=== PATIENT | female | born 1965 | race Caucasian/White ===

== ENCOUNTER 2016-08-27 15:15 | Emergency (ER) | payer MEDICARE ==
[2016-08-27 18:06] LABS: Hematocrit 43 % (35-47); Mean Corpuscular HGB Conc 32 g/dl (31-36); Mean Corpuscular Hemoglobin 29 pg (27-31); Mean Corpuscular Volume 91 fL (80-97); Mean Platelet Volume 8 um3 (7.4-10.4); Red Blood Count 4.77 10^6/ul (4.0-5.4); Red Cell Distribution Width 13 % (10.5-15); White Blood Count 11.9 10^3/ul (3.5-10.8)
[2016-08-27 18:21] LABS: Albumin 4.3 g/dL (3.2-5.2); BUN/Creatinine Ratio 17.5 (8-20); Calcium 9.3 mg/dL (8.6-10.3); EGFR African American 127.6 (>60); EGFR Non-African American 99.2 (>60); Globulin 3.1 g/dL (2-4); Total Bilirubin 0.4 mg/dL (0.2-1.0); Total Protein 7.4 g/dL (6.4-8.9)
[2016-08-27 18:24] LABS: Potassium 4.2 mmol/L (3.5-5.0)
[2016-08-27] MEDS ORDERED: Iohexol 350* (CONTRAST) 500 ML MDV IV ONE (18:45)
--- NOTE | 2016-08-27 20:13 | RAD ---
Indication: Shortness of breath, positive d-dimer. Contrast: Administered 100.0 ml of OMNIPAQUE 350 mgi/ml CTA of the chest was performed after IV contrast administration. Coronal and sagittal reconstructed images were obtained. The pulmonary arterial tree is well opacified. There are no evidence of filling defects present to suggest pulmonary embolus. The thoracic aorta demonstrates no evidence of aortic dissection. The trachea and major bronchi appear patent. The lung palafox demonstrate no pleural fluid, pneumonia or pneumothorax. The visualized abdominal organs are otherwise unremarkable. IMPRESSION: No evidence of pulmonary embolus is noted. No evidence of aortic dissection is noted.
[2016-08-27] MEDS ORDERED: Albuterol/Ipratropium NEB.SOL* Albuterol 2.5 MG/Ipratropium 0.5 MG 3 ML INH ONE (20:25)
[2016-08-27] MEDS ORDERED: methylPREDNISolone 125 MG* 2 ML VIAL IV ONE (20:25)
--- NOTE | 2016-08-27 20:37 | ED ---
Deng Rahman Billy, scribed for Mac Craft MD on 08/27/16 at 1709 . Shortness of Breath - HPI Summary HPI Summary: Patient is a 50 year-old female sent to [facility] by her PCP for evaluation of an elevated D-Dimer value of 236 today. She states that she was diagnosed with asthma today as well by her clinique counter manager, Dr. Ashley. For the last 2 months, she has had progressing chest pain, shortness of breath, cough, and wheezing. She describes her chest pain as "lung pain." She is also being treated by Dr. Tinajero for chronic back pain and osteoarthritis. Denies any recent travel. - History of Current Complaint Chief Complaint: EDAsthma Time Seen by Provider: 08/27/16 16:49 Hx Obtained From: Patient Onset/Duration: Gradual Onset, Lasting Weeks Current Severity: Moderate Aggrevating Factors: Nothing Alleviating Factors: Nothing Associated Signs & Symptoms: Wheezing - Allergy/Home Medications Allergies/Adverse Reactions: Allergies Allergy/AdvReac Type Severity Reaction Status Date / Time Cephalosporins Allergy Severe sob,rash Verified 08/23/12 13:03 Penicillins Allergy Severe sob ,hives Verified 08/23/12 13:00 Aminothiols Allergy Unknown Unknown Verified 08/23/12 13:03 Reaction Details Carbapenems Allergy Unknown Unknown Verified 08/23/12 13:03 Reaction Details monobactam Allergy Severe Shortness Uncoded 08/23/12 13:03 of Breath PMH/Surg Hx/FS Hx/Imm Hx Endocrine/Hematology History: Reports: Hx Thyroid Disease, Hx Anemia - With Interferon Denies: Hx Anticoagulant Therapy, Hx Diabetes Cardiovascular History: Denies: Hx Hypertension, Hx Pacemaker/ICD Respiratory History: Denies: Hx Asthma, Hx Chronic Obstructive Pulmonary Disease (COPD) GI History: Reports: Hx Gall Bladder Disease, Hx Irritable Bowel, Hx Jaundice, Other GI Disorders - right side pain, hep c History: Denies: Hx Renal Disease Musculoskeletal History: Reports: Hx Arthritis, Hx Back Problems, Hx Osteoporosis, Other Musculoskeletal History - chronic back pain,osteo arthritis Denies: Hx Rheumatoid Arthritis Sensory History: Reports: Hx Contacts or Glasses Denies: Hx Hearing Aid Opthamlomology History: Reports: Hx Contacts or Glasses Neurological History: Denies: Hx Dementia, Hx Seizures Psychiatric History: Reports: Hx Anxiety Denies: Hx Panic Disorder, Hx Substance Abuse - Cancer History Hx Chemotherapy: No Hx Radiation Therapy: No - Surgical History Surgery Procedure, Year, and Place: WILDER 2004, [facility] [place] CYST REMOVED FROM EYE done in office 2009 Hx Anesthesia Reactions: No Infectious Disease History: No Infectious Disease History: Reports: Hx Hepatitis - Hep c Denies: Hx Human Immunodeficiency Virus (HIV), Traveled Outside the [place] in Last 30 Days - Family History Family History: No family history of breast cancer. - Social History Substance Use Type: Reports: None Hx Tobacco Use: No Review of Systems Positive: Chest Pain Respiratory: Other - wheezing Positive: Shortness Of Breath, Cough Positive: Arthralgia All Other Systems Reviewed And Are Negative: Yes Physical Exam - Summary Physical Exam Summary: VITAL SIGNS: Reviewed. GENERAL: Patient is an obese female who is lying comfortable in the stretcher. Patient is not in any acute respiratory distress. HEAD AND FACE: No signs of trauma. No ecchymosis, hematomas or skull depressions. No sinus tenderness. EYES: PERRLA, EOMI x 2, No injected conjunctiva, no nystagmus. EARS: Hearing grossly intact. Ear canals and tympanic membranes are within normal limits. MOUTH: Oropharynx within normal limits. NECK: Supple, trachea is midline, no adenopathy, no JVD, no carotid bruit, no c- spine tenderness, neck with full ROM. CHEST: Symmetric, no tenderness at palpation LUNGS: Clear to auscultation bilaterally. No wheezing or crackles. CVS: Regular rate and rhythm, S1 and S2 present, no murmurs or gallops appreciated. ABDOMEN: Soft, non-tender. No signs of distention. No rebound no guarding, and no masses palpated. Bowel sounds are normal. EXTREMITIES: FROM in all major joints, no edema, no cyanosis or clubbing. NEURO: Alert and oriented x 3. No acute neurological deficits. Speech is normal and follows commands. SKIN: Dry and warm Triage Information Reviewed: Yes Vital Signs On Initial Exam: Initial Vitals Temp Pulse Resp BP 98.6 F 101 20 181/83 08/27/16 15:20 08/27/16 15:20 08/27/16 15:20 08/27/16 15:20 Vital Signs Reviewed: Yes Diagnostics - Vital Signs Vital Signs Temp Pulse Resp BP Pulse Ox 08/27/16 15:55 97.9 F 105 16 172/108 98 08/27/16 15:26 98.6 F 99 20 181/83 98 08/27/16 15:20 98.6 F 101 20 181/83 - Laboratory Result Diagrams: 08/27/16 18:00 08/27/16 18:00 Lab Statement: Any lab studies that have been ordered have been reviewed, and results considered in the medical decision making process. - EKG 1749 EKG Interpretation: NSR 96 bpm, no STEMI Course/Dx - Course Assessment/Plan: Patient is a 50 year-old female sent to [facility] by her PCP for evaluation of an elevated D-Dimer value of 236 today. She states that she was diagnosed with asthma today as well by her clinique counter manager, Dr. Ashley. For the last 2 months, she has had progressing chest pain, shortness of breath, cough, and wheezing. She describes her chest pain as "lung pain." She is also being treated by Dr. Tinajero for chronic back pain and osteoarthritis. Denies any recent travel. Bloodwork WNL except for WBC of 11.9. The patient is still awaiting CTA chest to r/o PE since she has been having these symptoms of SOB, and her D-Dimer done by PCP was elevated. The patient is hemodynamically stable , A&Ox3. She is awaiting to get her CTA chest. She will be signed out to Dr. Whitlock at shift change to check for imaging results and further disposition. - Diagnoses Differential Diagnosis/HQI/PQRI: Positive: Asthma, Bronchitis, Pneumonia, Pulmonary Embolism, Pulmonary Edema Provider Diagnoses: Shortness of breath Discharge - Discharge Plan Condition: Stable Disposition: OTHER Discharge Disposition Comment: Signed out to Dr. Whitlock pending CTA chest results. The documentation as recorded by the Deng robertson Billy accurately reflects the service I personally performed and the decisions made by me, Mac Craft MD.
[2016-08-27 20:54] VITALS: BP 135/76
--- NOTE | 2016-08-28 01:36 | ED ---
Floridalma Rahman Alok, scribed for Power Whitlock MD on 08/27/16 at 2024 . Progress - Progress Note Progress Note: Pt reports had pulmonary functions test at doctors office today and was dx with asthma. Pt still complaining of chest burning. - Results/Orders Results/Orders: Chest/Thorax CTA - IMPRESSION: No evidence of pulmonary embolus is noted. No evidence of aortic dissection is noted. - EKG/XRAY/CT CT: Chest/Thorax CTA - See note Re-Evaluation - Re-Evaluation First Eval Re-Evaluation Time: 20:43 Change: Unchanged Comment: Told pt about concern for disease given age and weight. Pt declines second troponin and stated normal EKG. Pt understands risk of disability and and will leave AMA Course/Dx - Diagnoses Provider Diagnoses: Shortness of breath The documentation as recorded by the candaceibFloridalma antony Alok accurately reflects the service I personally performed and the decisions made by , Power Whitlock MD.
== END 2016-08-27 20:52 | disposition left against medical advice (07) ==
LOC: ED 15:15
DX: R06.02 Shortness of breath (principal); D64.9 Anemia, unspecified; Z88.0 Allergy status to penicillin
CPT/HCPCS: 36415; 71275; 80053; 83605; 84484; 85025; 93005; 99283; Q9967

== ENCOUNTER 2017-09-13 13:29 | Inpatient (IN) | payer MEDICARE ==
[2017-09-13] MEDS ORDERED: HYDROmorphone INJ* 2 MG/ML CARPUJECT SYRINGE IV SLOW PU ONE ×3 (15:21→23:03)
[2017-09-13] MEDS ORDERED: Ketorolac INJ* 30 MG/ML 1 ML VIAL IV PUSH ONE (15:21)
[2017-09-13 15:55] LABS: Hematocrit 40 % (35-47); Hemoglobin 13.8 g/dl (12.0-16.0); Mean Corpuscular HGB Conc 34 g/dl (31-36); Mean Corpuscular Hemoglobin 31 pg (27-31); Mean Corpuscular Volume 90 fL (80-97); Mean Platelet Volume 7.1 um3 (7.4-10.4); Platelet Count 202 10^3/ul (150-450); Red Blood Count 4.49 10^6/ul (4.0-5.4); Red Cell Distribution Width 14 % (10.5-15); White Blood Count 14.3 10^3/ul (3.5-10.8)
[2017-09-13 16:21] LABS: EGFR Non-African American 100.7 (>60)
--- NOTE | 2017-09-13 18:04 | RAD ---
Indication: Chronic back pain. Sagittal T1, T2, STIR, axial T1 and T2-weighted images of the lumbar spine were obtained. The vertebral bodies appear normal in height. Normal bone marrow signal is noted. The S2 segment demonstrates some minimal bone marrow edema. This may be due to stress related change. At L5-S1 disc degeneration is noted. Spondylitic ridge is noted. No central or foraminal stenosis is noted. At L4-L5 degenerative disc disease is noted. Moderate facet hypertrophy is noted. No central or foraminal stenosis is noted. At L3-L4 no focal protrusion is identified. No central or foraminal stenosis is noted. At L1-L2 and L2-L3 no disc protrusion is noted. Minimal degenerative disc disease is noted. No evidence of spinal stenosis is noted. IMPRESSION: Degenerative disc disease at L4-L5 and L5-S1 with minimal spondylitic ridge. No definite spinal stenosis is noted. Bone marrow edema at S2 may be due to stress-related change or infiltrate degenerative disc disease. No evidence of compression of the cauda equina is noted.
[2017-09-13] MEDS ORDERED: Al Hydrox/Mg Hydrox/Simet LIQ* 30 ML UDC PO PRN (19:27)
[2017-09-13] MEDS ORDERED: Magnesium Hydroxide LIQ* 30 ML UDC PO PRN (19:27)
[2017-09-13] MEDS ORDERED: Albuterol 2.5 MG/3 ML NEB.SOL* (0.083%) INH PRN (19:27)
[2017-09-13] MEDS ORDERED: Ondansetron 40 MG VIAL* 2 MG/ML 20 ML VIAL IV PRN (19:27)
[2017-09-13] MEDS ORDERED: Cetirizine* 10 MG TAB PO PRN (19:33)
[2017-09-13] MEDS ORDERED: Albuterol HFA INHALER* 8 gm MDI INH PRN (19:33)
[2017-09-13] MEDS ORDERED: Fluticasone-Salmeterol 250-50* DISKUS INH SCH (21:00)
--- NOTE | 2017-09-13 22:27 | HP ---
CC: Dr. Tinajero, Pain Clinic; Dr. Mccrary * ADMISSION HISTORY AND PHYSICAL: DATE OF ADMISSION: 09/13/17 PATIENT OF: Albert Kaminski MD * (DICTATED BY NEVAEH TRACEY) PRIMARY CARE PHYSICIAN: Dr. Mccrary. PRIMARY PAIN MANAGEMENT PHYSICIAN: Dr. Tinajero. CHIEF COMPLAINT: Intractable back pain. HISTORY OF PRESENT ILLNESS: Kacie is a 51-year-old female who carries past medical history significant for chronic back pain for which she has had multiple injections and has been followed by the pain clinic for a long time. She also has past medical history significant for morbid obesity, osteoporosis, irritable bowel syndrome, COPD and asthma. She presented to the emergency room earlier this afternoon with complaints of worsening back pain for the last few days. The patient has had an appointment at her primary care physician. She had flat x-rays done and she was told she has some osteoarthritis. She reports that her back pain has gotten progressively worse to the point that she has been unable to walk or get out of bed. She has been using a wheelchair since the pain has got so severe. She has been on multiple narcotic prescriptions for her chronic pain and has been seen in the pain clinic multiple times. She denies any back injury or fall. She was evaluated in the emergency room and an MRI of the lumbar spine was done that revealed degenerative disc disease at L4- L5 and L5-S1 with no definite spinal stenosis, no stress related changes and no evidence of any compression fracture or cauda equina. Multiple attempts were made in the emergency room for the patient to get up and ambulate; however, she could not do it due to severe back pain to the point that we were asked to see the patient to consider admission for observation due to intractable back pain as well as to obtain a physical therapy consultation in the morning. PAST MEDICAL HISTORY: As mentioned above, significant for: 1. Chronic back pain. 2. History of hypertension. 3. History of anemia with thyroid disease in the past. 4. History of jaundice related to cholecystitis with cholelithiasis for which she had her gallbladder out. 5. She also reports history of osteoporosis, chronic back pain, and anxiety. PAST SURGICAL HISTORY: Significant for laparoscopic cholecystectomy back in 2003. She also had a cyst removed from her eye that was done as an office procedure back in 2008. She also reports history of hepatitis, but denies any history of HIV, IV drug use or traveling outside [place]. CURRENT MEDICATIONS: Her medications at home include: 1. Ventolin nebulizer 2.5 mg/3 mL one nebulizer q.4 hours as needed for shortness of breath. 2. Albuterol Ventolin MDI inhaler 2 puffs q.4 hours as needed for shortness of breath. 3. Flonase nasal spray 50 mcg 1 spray in both nostrils once daily. 4. Advair Diskus 250/50 one puff inhaled b.i.d. 5. Lidocaine patch 5% transdermal as prescribed. 6. Claritin 10 mg p.o. daily. 7. Oxycodone liquid 100 mg/5 mL 0.25 mL sublingual q.6 to 8 hours p.r.n. for pain. 8. OxyContin 10 mg p.o. q.8 hours p.r.n. for breakthrough pain. 9. Roxicodone 5 mg q.4 hours as needed for pain. 10. Prednisone 30 mg p.o. daily; however, it is noted that the patient has been taking 100 mg of prednisone on a daily basis for the last week. 11. Thyroid pork. 12. Zanaflex 2 or 4 mg p.o. t.i.d. for muscle spasm. ALLERGIES: Multiple including AZTREONAM, CARBAPENEM, CEPHALOSPORINS, PENICILLIN. FAMILY HISTORY: She denies any family history of blood pressure disease, diabetes or malignancies. SOCIAL HISTORY: The patient is a nonsmoker who does not drink alcohol and caffeine intake is minimal. She is and her Kristian is the healthcare proxy carrier. REVIEW OF SYSTEMS: A 14-point review of system were all reviewed and all the pertinent positives and negatives are mentioned in the history of present illness, otherwise all other systems reviewed were negative. PHYSICAL EXAMINATION GENERAL: She is a 51-year-old female, morbidly obese with BMI of 49, lying on her bed, appears comfortable at the time of admission and in no acute distress. There is a very obvious cushingoid appearance to the patient's face and upper back consistent with chronic use of high dose prednisone. VITAL SIGNS: Blood pressure of 152/84, pulse of 108, respirations of 20, temperature of 98 degrees, and O2 sat of 96% on room air. HEENT: Head is normocephalic, atraumatic. Sclerae anicteric. PERRLA. EOMs intact. Oropharynx pink, moist with no exudate. NECK: Supple. Trachea midline. No cervical adenopathy noted. LUNGS: Clear to auscultation bilaterally. HEART: Regular rate and rhythm. Normal S1, and S2 without rubs, murmurs, or gallops. BACK: Normal curvature. No CVA tenderness. There is point tenderness noted at the L5-S1 junction; however, there is no swelling or ecchymosis noted. BREAST: Exam deferred at this time. ABDOMEN: Soft, nontender and nondistended. No hernias, masses, or hepatosplenomegaly. EXTREMITIES: With 1+ bilateral lower extremity edema noted. There is no clubbing or cyanosis. RECTAL: Exam deferred at this time. NEUROLOGIC: Grossly intact. Tongue is midline. Hand school leader is equal bilaterally. Sensation is intact. DIAGNOSTIC STUDIES/LABORATORY DATA: CBC with white count of 14,000 and I suspect this is actually related to chronic use of prednisone, hemoglobin of 13.8, hematocrit of 40, and platelets of 202. Chemistry panel with sodium of 137, potassium 4, chloride 98, CO2 of 31, BUN 21, and creatinine 0.6. Her glucose was 266. LFTs within normal limits. ACCESSORY DIAGNOSTIC DATA: As mentioned above MRI of the lumbar spine was consistent with degenerative disc disease at L4-L5 and L5-S1 with no definite spinal stenosis noted. There is questionable bone marrow edema at S2 that could be due to stress-related change or infiltrative degenerative disc disease as it read. No evidence of compression or cauda equina is noted. IMPRESSION: A 51-year-old morbidly obese female with past medical history of chronic back pain, multiple joint osteoarthritis consistent with polymyalgia rheumatica, possibly fibromyalgia rheumatica, who also has history of chronic prednisone use, presented to the emergency room with worsening back pain for the last few days with no apparent injury. ASSESSMENT AND PLAN: 1. Intractable back pain. The patient was not able to get up and ambulate in the emergency room despite multiple doses of Dilaudid and Toradol. Lumbar spine MRI showed no evidence of any neurological issues and I think her pain is most likely musculoskeletal in origin given her history. I will continue her on all her regular pain medications and will add the Flexeril to use as needed. Toradol will be also available on an as needed basis. She will have a Begum catheter due to difficulty using a bedpan at bed. Plan is for observation admission at medical floor and tomorrow we will get a PT evaluation and treatment. 2. Hyperglycemia. I anticipate this is secondary to chronic prednisone use. The patient has no definite history of diabetes mellitus. I will keep checking her blood sugar and we will address coverage if needed. 3. Chronic obstructive pulmonary disease, asthma. This has been a newly diagnosed issue for the patient since last month. We will maintain her on her on her albuterol nebulizer inhaler on as needed basis as well as her Flonase and Advair Diskus as she is taking at home. 4. Leukocytosis. Again, I anticipate this is secondary to her chronic prednisone use. She shows no signs of infection or being febrile. Regarding her prednisone use, since the patient has been taking a high dose of 100 mg per day, that was cut down to 50 mg today. I will continue her on 50 mg of prednisone and taper her down to a lower dose until she follows up with her marriage performer. 5. DVT. She is a high risk for DVT and she will be covered with subcu heparin. 6. Code status. She is a full code. TIME SPENT: Time spent admitting the patient was approximately 60 minutes with more than 50% spent on physical exam and history taken as well as discussing plans of care. I have discussed the case with Dr. Kaminski, who is aware and agreeable to plan of care. NEVAEH TRACEY [id number]/CPS #: [id number] ARTEMIO
[2017-09-13] MEDS: Heparin VIAL(*) 5000 UNITS/ML VIAL (FIVE THOUSAND) SUBCUT SCH (23:22)
[2017-09-13] MEDS: Docusate CAP* 100 MG PO SCH (23:23)
[2017-09-14] MEDS: oxyCODONE SR TAB(*) 10 MG TAB.SR PO PRN ×3 (00:34→21:45)
[2017-09-14] MEDS: Ketorolac INJ* 30 MG/ML 1 ML VIAL IV PUSH PRN ×2 (02:43→13:36)
[2017-09-14] MEDS: oxyCODONE TAB* 5 MG TAB PO PRN ×2 (02:43→22:59)
[2017-09-14] MEDS: Cyclobenzaprine TAB* 10 MG PO PRN ×3 (02:44→13:37)
[2017-09-14] MEDS: tiZANidine TAB* 2 MG PO PRN (04:14)
[2017-09-14] MEDS: HYDROmorphone INJ* 2 MG/ML CARPUJECT SYRINGE IV SLOW PU PRN ×5 (04:14→21:26)
[2017-09-14 06:09] LABS: Hematocrit 39 % (35-47); Hemoglobin 13.3 g/dl (12.0-16.0); Mean Corpuscular HGB Conc 34 g/dl (31-36); Mean Corpuscular Hemoglobin 31 pg (27-31); Mean Corpuscular Volume 91 fL (80-97); Mean Platelet Volume 6.9 um3 (7.4-10.4); Platelet Count 161 10^3/ul (150-450); Red Blood Count 4.32 10^6/ul (4.0-5.4); Red Cell Distribution Width 14 % (10.5-15); White Blood Count 10.8 10^3/ul (3.5-10.8)
[2017-09-14] MEDS: Heparin VIAL(*) 5000 UNITS/ML VIAL (FIVE THOUSAND) SUBCUT SCH ×3 (06:29→21:23)
[2017-09-14 06:38] LABS: ABS Basophils 0.2 10^3/ul (0-0.2); ABS Eosinophils 0 10^3/ul (0-0.6); ABS Lymphocytes 2.6 10^3/ul (1.0-4.8); ABS Monocytes 1.1 10^3/ul (0-0.8); ABS Neutrophils 6.9 10^3/ul (1.5-7.7); ABS Nucleated RBC 0 10^3/ul; EGFR Non-African American 92.1 (>60); Eosinophil % 0 % (0-6); Lymphocyte % 24.2 % (25-47); Nucleated Red Blood Cells % 0.1
[2017-09-14] MEDS: Mometasone/Formoter 200/5 MDI INH SCH ×3 (08:07→20:34)
[2017-09-14] MEDS: Docusate CAP* 100 MG PO SCH ×3 (08:40→21:23)
[2017-09-14] MEDS: predniSONE TAB* 10 MG PO SCH (08:40)
[2017-09-14] MEDS: Fluticasone NASAL SPRAY 50MCG* 16 gm SPRAY BTL BOTH NARES SCH (09:02)
[2017-09-14] MEDS: Lidocaine PATCH 5%* 1 PATCH TRANSDERM SCH (13:36)
--- NOTE | 2017-09-14 14:10 | PN ---
Subjective Date of Service: 09/14/17 Interval History: Patient seen and examined. States she is still in too much pain to move. She is tearful. Explained that she has no new findings on imaging. Patient refused to participate in therapy evaluation and refused to have hernandez removed. Counseled extensively on how important it is for her to participate with the plan of care ; and the risk of infection from hernandez is high for her since she was increasing prednisone doses without consulting her provider and that she could also have many other complications from too much prednisone. No further complaints but states she is eating less because she does not want to get up to go to the commode. Objective Active Medications: Al Hydrox/Mg Hydrox/Simethicone (Maalox Plus*) 30 ml PO Q6H PRN PRN Reason: INDIGESTION Albuterol (Ventolin 2.5 Mg/3 Ml Neb.Anette*) 2.5 mg INH [id number] AWAKE PRN PRN Reason: sob/wheezing Albuterol (Ventolin Hfa Inhaler*) 2 puff INH Q4H PRN PRN Reason: SHORTNESS OF BREATH Cetirizine HCl (Zyrtec*) 10 mg PO DAILY PRN PRN Reason: Allergy Symptoms Cyclobenzaprine HCl (Flexeril Tab*) 10 mg PO TID PRN PRN Reason: SPASMS - NECK Last Admin: 09/14/17 13:37 Dose: 10 mg Docusate Sodium (Colace Cap*) 100 mg PO BID [facility] Last Admin: 09/14/17 09:01 Dose: Not Given Fluticasone Propionate (Flonase Nasal Mulberry 50mcg*) 1 spray BOTH NARES DAILY [facility] Last Admin: 09/14/17 09:02 Dose: Not Given Heparin Sodium (Porcine) (Heparin Vial(*)) 5,000 units SUBCUT Q8HR [facility] Last Admin: 09/14/17 13:36 Dose: 5,000 units Hydromorphone HCl (Dilaudid Inj*) 1 mg IV SLOW PU Q4H PRN PRN Reason: PAIN Last Admin: 09/14/17 12:29 Dose: 1 mg Ketorolac Tromethamine (Toradol Inj*) 30 mg IV PUSH Q6H PRN PRN Reason: PAIN Last Admin: 09/14/17 13:36 Dose: 30 mg Lidocaine (Lidoderm 5% Patch*) 1 patch TRANSDERM DAILY [facility] Last Admin: 09/14/17 13:36 Dose: 1 patch Magnesium Hydroxide (Milk Of Magnesia Liq*) 30 ml PO Q4H PRN PRN Reason: CONSTIPATION Mometasone Furoate/Formoterol Fumar (Dulera 200/5 Mdi*) 2 puff INH BID [facility] Last Admin: 09/14/17 08:10 Dose: Not Given Ondansetron HCl (Zofran 40 Mg Vial*) 4 mg IV Q4H PRN PRN Reason: NAUSEA/VOMITING Oxycodone HCl (Oxycontin(*)) 10 mg PO Q8HR PRN PRN Reason: PAIN - UNRELIEVED Last Admin: 09/14/17 08:57 Dose: 10 mg Oxycodone HCl (Roxycodone Tab*) 10 mg PO Q6H PRN PRN Reason: PAIN - UNRELIEVED Last Admin: 09/14/17 02:43 Dose: 10 mg Pharmacy Profile Note (Lidocaine Patch Remove*) 1 note PATCH OFF 2099 [facility] Prednisone (Deltasone Tab*) 50 mg PO DAILY [facility] Last Admin: 09/14/17 08:40 Dose: 50 mg Tizanidine HCl (Zanaflex Tab*) 2 mg PO TID PRN PRN Reason: PAIN - UNRELIEVED Last Admin: 09/14/17 04:14 Dose: 2 mg Vital Signs - 8 hr 09/14/17 09/14/17 09/14/17 07:19 07:23 08:37 Temperature 98.0 F Pulse Rate 87 Respiratory 18 20 20 Rate Blood Pressure 128/63 (mmHg) O2 Sat by Pulse 97 Oximetry 09/14/17 09/14/17 09/14/17 08:42 08:57 11:01 Temperature 97.7 F Pulse Rate 102 Respiratory 20 20 18 Rate Blood Pressure 145/65 (mmHg) O2 Sat by Pulse 95 Oximetry 09/14/17 09/14/17 12:29 13:37 Temperature Pulse Rate Respiratory 20 24 Rate Blood Pressure (mmHg) O2 Sat by Pulse Oximetry Oxygen Devices in Use Now: Nasal Cannula Appearance: Alert, mild distress Eyes: No Scleral Icterus, PERRLA Ears/Nose/Mouth/Throat: NL Teeth, Lips, Gums, Mucous Membranes Moist Neck: NL Appearance and Movements; NL JVP, Trachea Midline Respiratory: Symmetrical Chest Expansion and Respiratory Effort, Clear to Auscultation Cardiovascular: NL Sounds; No Murmurs; No JVD, RRR Extremities: No Clubbing, Cyanosis Skin: No Rash or Ulcers Neurological: Alert and Oriented x 3, NL Muscle Strength and Tone Nutrition: Taking PO's Result Diagrams: 09/14/17 05:53 09/14/17 05:53 Diagnostic Imaging: Patient Name: MANINDER GIPSON Medical Record#: [id number] Ordering Physician: Power Whitlock MD Acct.#: [id number] : 1965 Age: 51 Sex: F Location: EMERGENCY DEPARTMENT Exam Date: 09/13/17 1521 ADM Status: REG ER Order Information: MRI LUMBAR SPINE W/O Accession Number: [id number] CPT: 65103 Indication: Chronic back pain. Sagittal T1, T2, STIR, axial T1 and T2-weighted images of the lumbar spine were obtained. The vertebral bodies appear normal in height. Normal bone marrow signal is noted. The S2 segment demonstrates some minimal bone marrow edema. This may be due to stress related change. At L5-S1 disc degeneration is noted. Spondylitic ridge is noted. No central or foraminal stenosis is noted. At L4-L5 degenerative disc disease is noted. Moderate facet hypertrophy is noted. No central or foraminal stenosis is noted. At L3-L4 no focal protrusion is identified. No central or foraminal stenosis is noted. At L1-L2 and L2-L3 no disc protrusion is noted. Minimal degenerative disc disease is noted. No evidence of spinal stenosis is noted. IMPRESSION: Degenerative disc disease at L4-L5 and L5-S1 with minimal spondylitic ridge. No definite spinal stenosis is noted. Bone marrow edema at S2 may be due to stress-related change or infiltrate degenerative disc disease. No evidence of compression of the cauda equina is noted. <Electronically signed by Angie Carranza MD in [place]> 09/13/17 1800 Dictated By: Angie Carranza MD Dictated Date/Time: 09/13/17 1800 Transcribed Date/Time: 09/13/17 1142 Copy to: Assess/Plan/Problems-Billing Assessment: This is a 51 year old woman with history of chronic pain, morbidly obese, - Patient Problems (1) Chronic pain Code(s): G89.29 - OTHER CHRONIC PAIN SNOMED Code(s): 14950465 Comment: - On significant amount of narcotic analgesics, now with increased pain with no clear etiology - Continue pain control, PT/OT, assistive devices as needed - MRI as above - Per RN, patient states her leg went "numb" when she was placed in recliner and was subesquently put back in bed. - Will request NS to evaluate patient (2) Hypertension Code(s): I10 - ESSENTIAL (PRIMARY) HYPERTENSION SNOMED Code(s): 35384133 Comment: - Continue home meds, stable (3) Morbid obesity Code(s): E66.01 - MORBID (SEVERE) OBESITY DUE TO EXCESS CALORIES SNOMED Code(s ): 798278893 Comment: - BMI 49.7 (4) Osteoporosis Code(s): M81.0 - AGE-RELATED OSTEOPOROSIS W/O CURRENT PATHOLOGICAL FRACTURE SNOMED Code(s): 64903742 Comment: - counseled (5) Hyperglycemia Code(s): R73.9 - HYPERGLYCEMIA, UNSPECIFIED SNOMED Code(s): 99971634 Comment: - May be related to overmedicating with prednisone - Monitor glucose on daily labs (6) Leukocytosis Code(s): D72.829 - ELEVATED WHITE BLOOD CELL COUNT, UNSPECIFIED SNOMED Code(s) : 995444770 Comment: - Likely r/t overmedication with prednisone, does not appear toxic, will monitor Status and Disposition: Will re-eval after neurosurgery sees.
[2017-09-14] MEDS: Lidocaine Patch REMOVE* 1 NOTE MISC PATCH OFF SCH (21:33)
[2017-09-15] MEDS: Ketorolac INJ* 30 MG/ML 1 ML VIAL IV PUSH PRN ×4 (01:40→22:43)
[2017-09-15] MEDS: HYDROmorphone INJ* 2 MG/ML CARPUJECT SYRINGE IV SLOW PU PRN ×5 (01:40→20:07)
[2017-09-15] MEDS: Heparin VIAL(*) 5000 UNITS/ML VIAL (FIVE THOUSAND) SUBCUT SCH ×3 (05:34→22:41)
[2017-09-15] MEDS: Cyclobenzaprine TAB* 10 MG PO PRN ×3 (05:34→20:08)
[2017-09-15] MEDS: oxyCODONE SR TAB(*) 10 MG TAB.SR PO PRN ×2 (07:24→22:40)
[2017-09-15] MEDS: Mometasone/Formoter 200/5 MDI INH SCH ×2 (08:46→20:55)
[2017-09-15] MEDS: tiZANidine TAB* 2 MG PO PRN ×3 (09:22→22:40)
[2017-09-15] MEDS: Docusate CAP* 100 MG PO SCH ×2 (09:23→20:08)
[2017-09-15] MEDS: predniSONE TAB* 10 MG PO SCH (09:23)
[2017-09-15] MEDS: oxyCODONE TAB* 5 MG TAB PO PRN ×2 (09:23→18:18)
[2017-09-15] MEDS: Fluticasone NASAL SPRAY 50MCG* 16 gm SPRAY BTL BOTH NARES SCH (09:27)
--- NOTE | 2017-09-15 09:50 | CONS ---
AMENDED REPORT NOW INCLUDES DATE OF CONSULT - ESIGNED BEFORE ADJUSTMENT CONSULTATION REPORT: DATE OF CONSULT: 09/15/17 HISTORY OF PRESENT ILLNESS: The patient is a very pleasant 51-year-old female with history of morbid obesity and chronic back pain, who was followed in the past by Dr. Bean. The patient had been treated conservatively and was followed by pain management and has undergone multiple injections in the past. She was admitted to the hospital after a reported history of one week of increased back pain and inability to ambulate. The patient had intractable pain in the emergency room and for this reason she was admitted. MRI of the lumbar spine revealed chronic degenerative disk disease at L4-5 and L5-S1 with bilateral neuroforaminal stenosis. The patient reports that she has significant back pain radiating to both lower extremities all the way down to her feet with the back pain being the most significant component. She reports that she had difficulty ambulating last week. She has been using prednisone p.o., which was initially given for her asthma, but she felt that it also helped the pain. The patient reports that she has weakness in the lower extremities with chronic numbness in both feet. She denies any urinary or GI incontinence. The patient reports that her perineal sensation is intact.She reports that two weeks ago she had a trial of two new pain medications for her ' connective tissue disorder' and she was not able to tolerate them. she had to stop her usual NSAIDS and she recently restarted them. PAST MEDICAL HISTORY: The patient has a history of chronic back pain, obesity, hypertension, anemia, COPD, osteoporosis, anxiety, jaundice in the past due to cholecystitis. PAST SURGICAL HISTORY: Laparoscopic cholecystectomy, cyst removal from her eye. MEDICATIONS: The patient's home medications include: 1. Ventolin. 2. Albuterol. 3. Flonase. 4. Advair. 5. Lidocaine patch. 6. Claritin. 7. Oxycodone. 8. OxyContin. 9. Roxicodone. 10. Prednisone. 11. Thyroid. 12. Zanaflex. ALLERGIES: Including AZTREONAM, CARBAPENEM, CEPHALOSPORINS, PENICILLIN. FAMILY HISTORY: Noncontributory. SOCIAL HISTORY: The patient is not a smoker. Alcohol negative. Recreational drug use negative. The patient is and her is the healthcare proxy. PHYSICAL EXAM: The patient is not in acute distress. She is resting comfortably in the bed. She has no tenderness to palpation over the thoracic and lumbar spine. There is free range of motion in the cervical spine. The exam is somewhat limited because the patient complains of significant pain every time she is turned from side to side or when she is attempting to move her legs. She is awake, alert, and oriented x3. Pupils are equal and reactive. Cranial nerves II through XII are grossly intact. Motor 4 to 5/5 in the upper extremities, 4/5 in the lower extremities, possibly antalgic versus poor effort. The patient reports there is significant pain every time she is trying to move her legs. Sensory is grossly intact to light touch. Position intact. Deep tendon reflexes +1 bilaterally. No clonus. No Babinski. Velasquez 's negative. Straight leg raise test is negative in the seated position although her exam is very limited. DIAGNOSTIC STUDIES/LAB DATA: The patient had an MRI of the lumbar spine revealing degenerative disk disease at L4-5 and L5-S1 with mild neuroforaminal stenosis without evidence of central stenosis. ASSESSMENT: The patient is a very pleasant 51-year-old female, with history of obesity, osteoarthritis, chronic obstructive pulmonary disease, chronic back pain, on pain management with MRI findings consistent with degenerative disease at L4-5 and L5-S1. PLAN/RECOMMENDATIONS: The patient reports complaints of pain disproportionate with the MRI findings. The MRI findings seem to be quite chronic and it is very difficult to explain her current symptoms. The patient may be a candidate for surgical intervention in the future in the form of arthrodesis at L4-5 and L5-S1, but because of her body habitus and BMI, we discussed risks and benefits of this procedure and we shall advise the patient to exhaust conservative modalities such as weight loss and modification of lifestyle. Because of her complaints of back pain as well as perception of abrupt weakness of the right lower extremity with numbness when she was trying to go to bed from a chair, we will recommend an MRI of the thoracic and cervical spine. If the MRI findings are negative and her symptoms persist, a consultation for Neurology evaluation may be appropriate. Discussed the plan and details with the patient, as well as MRI findings, the patient understood and would like to proceed with medical pain control for now. Thank you for allowing us to participate in the care of this patient. Please do not hesitate to contact our office in case you have any further questions or concerns regarding the care of this patient. [id number]/[facility] #: [id number] ASHLYD
[2017-09-15] MEDS: Lidocaine PATCH 5%* 1 PATCH TRANSDERM SCH (11:23)
--- NOTE | 2017-09-15 15:38 | RAD ---
HISTORY: numbness COMPARISONS: None TECHNIQUE: The following sequences were obtained of the cervical spine: Sagittal T1- and T2-weighted images, sagittal STIR images, axial T2 and gradient echo images. FINDINGS: BRAIN AND SPINAL CORD: The visualized spinal cord is normal in caliber, position, and signal intensity. The visualized portion of the brain is unremarkable. The cerebellar tonsils are normal in position. ALIGNMENT: There is straightening of the normal cervical lordosis. The alignment is otherwise normal. VERTEBRAL BODIES: There is multilevel anterolateral marginal osteophyte formation. JOINTS: There is diffuse uncovertebral and facet osteoarthritis. MUSCULATURE: There is moderate infiltration. INTERVERTEBRAL DISCS: There is diffuse loss of intervertebral disc height and T2 signal throughout the spine. AXIAL IMAGES: C2-C3: There is moderate right neuroforaminal narrowing secondary to uncovertebral and facet hypertrophy. There is no significant central canal stenosis. C3-C4: There is a broad-based disc osteophyte complex bilateral uncovertebral and facet hypertrophy. There is fusion across the facet joints. There is severe bilateral neuroforaminal narrowing. There is mild narrowing of the central canal. C4-C5: There is moderate bilateral neuroforaminal narrowing. There is no significant central canal stenosis. C5-C6: There is a broad-based disc osteophyte complex with bilateral uncovertebral and facet hypertrophy. There is severe right and moderate left neural foraminal narrowing. There is mild narrowing of the central canal. C6-C7: There is a broad-based disc osteophyte complex with bilateral uncovertebral and facet hypertrophy. There is moderate bilateral neuroforaminal narrowing. There is mild narrowing of the central canal. C7-T1: There is bilateral facet hypertrophy. There is moderate left and mild right neuroforaminal narrowing. There is no significant central canal stenosis. SOFT TISSUES: The visualized soft tissues of the neck are unremarkable. OTHER: None. IMPRESSION: 1. DEGENERATIVE DISC DISEASE AND OSTEOARTHRITIS. 2. THERE IS MILD NARROWING OF THE CENTRAL CANAL AT C3-C4, C5-C6, AND C6-C7. 3. THERE IS MULTILEVEL NEURAL FORAMINAL NARROWING DESCRIBED ABOVE.
--- NOTE | 2017-09-15 15:51 | RAD ---
HISTORY: numbness, pain COMPARISONS: None TECHNIQUE: The following sequences were obtained of the thoracic spine: Sagittal T1 and T2-weighted images, sagittal STIR images, coronal T2-weighted images, and axial T2-weighted images. . FINDINGS: Localization is based on counting from C2 SPINAL CORD, CONUS, AND CAUDA EQUINA: The visualized spinal cord, conus, and cauda equina are normal in caliber, position, and signal intensity. ALIGNMENT: The alignment is normal. VERTEBRAL BODIES: The bones are normal in signal intensity. The vertebral bodies are preserved in height. There is multilevel anterolateral marginal osteophyte formation. JOINTS: There is costovertebral osteoarthritis. MUSCULATURE: There is mild fatty infiltration. INTERVERTEBRAL DISCS: There is diffuse loss of intervertebral disc height and T2 signal throughout the spine. AXIAL IMAGES: There is no central canal stenosis or neuroforaminal narrowing. SOFT TISSUES: The visualized soft tissues of the chest and upper abdomen are unremarkable. OTHER: None. IMPRESSION: DEGENERATIVE DISC DISEASE AND OSTEOARTHRITIS. NO SIGNIFICANT NEURAL FORAMINAL NARROWING OR CENTRAL CANAL STENOSIS.
--- NOTE | 2017-09-15 16:29 | PN ---
Subjective Date of Service: 09/15/17 Interval History: Patient seen and examined. Still in pain, returned from MRI. Very mikaela discussion regarding negative findings on new MRIs other than arthritic changes. Discussed medical optimization for bariatric surgery to help alleviate joint pain and other comorbid conditions. Patient denies SOB, no chest pain, no further complaints. Objective Active Medications: Al Hydrox/Mg Hydrox/Simethicone (Maalox Plus*) 30 ml PO Q6H PRN PRN Reason: INDIGESTION Albuterol (Ventolin 2.5 Mg/3 Ml Neb.Anette*) 2.5 mg INH RT.[id number] AWAKE PRN PRN Reason: sob/wheezing Albuterol (Ventolin Hfa Inhaler*) 2 puff INH Q4H PRN PRN Reason: SHORTNESS OF BREATH Cetirizine HCl (Zyrtec*) 10 mg PO DAILY PRN PRN Reason: Allergy Symptoms Cyclobenzaprine HCl (Flexeril Tab*) 10 mg PO TID PRN PRN Reason: SPASMS - NECK Last Admin: 09/15/17 13:28 Dose: 10 mg Docusate Sodium (Colace Cap*) 100 mg PO BID [facility] Last Admin: 09/15/17 09:23 Dose: 100 mg Fluticasone Propionate (Flonase Nasal [place] 50mcg*) 1 spray BOTH NARES DAILY [facility] Last Admin: 09/15/17 09:27 Dose: Not Given Heparin Sodium (Porcine) (Heparin Vial(*)) 5,000 units SUBCUT Q8HR [facility] Last Admin: 09/15/17 13:29 Dose: 5,000 units Hydromorphone HCl (Dilaudid Inj*) 1 mg IV SLOW PU Q4H PRN PRN Reason: PAIN Last Admin: 09/15/17 11:20 Dose: 1 mg Ketorolac Tromethamine (Toradol Inj*) 30 mg IV PUSH Q6H PRN PRN Reason: PAIN Last Admin: 09/15/17 07:23 Dose: 30 mg Lidocaine (Lidoderm 5% Patch*) 1 patch TRANSDERM DAILY [facility] Last Admin: 09/15/17 11:23 Dose: 1 patch Magnesium Hydroxide (Milk Of Magnesia Liq*) 30 ml PO Q4H PRN PRN Reason: CONSTIPATION Mometasone Furoate/Formoterol Fumar (Dulera 200/5 Mdi*) 2 puff INH BID [facility] Last Admin: 09/15/17 08:46 Dose: Not Given Ondansetron HCl (Zofran 40 Mg Vial*) 4 mg IV Q4H PRN PRN Reason: NAUSEA/VOMITING Oxycodone HCl (Oxycontin(*)) 10 mg PO Q8HR PRN PRN Reason: PAIN - UNRELIEVED Last Admin: 09/15/17 07:24 Dose: 10 mg Oxycodone HCl (Roxycodone Tab*) 10 mg PO Q6H PRN PRN Reason: PAIN - UNRELIEVED Last Admin: 09/15/17 09:23 Dose: 10 mg Pharmacy Profile Note (Lidocaine Patch Remove*) 1 note PATCH OFF 2100 [facility] Last Admin: 09/14/17 21:33 Dose: 1 note Prednisone (Deltasone Tab*) 50 mg PO DAILY [facility] Last Admin: 09/15/17 09:23 Dose: Not Given Tizanidine HCl (Zanaflex Tab*) 2 mg PO TID PRN PRN Reason: PAIN - UNRELIEVED Last Admin: 09/15/17 13:28 Dose: 2 mg Oxygen Devices in Use Now: Nasal Cannula Appearance: alert, tearful Eyes: No Scleral Icterus, PERRLA Ears/Nose/Mouth/Throat: NL Teeth, Lips, Gums, Mucous Membranes Moist Neck: NL Appearance and Movements; NL JVP, Trachea Midline Respiratory: Symmetrical Chest Expansion and Respiratory Effort, Clear to Auscultation Cardiovascular: NL Sounds; No Murmurs; No JVD, RRR Abdominal: NL Sounds; No Tenderness; No Distention Extremities: No Edema, No Clubbing, Cyanosis Skin: No Rash or Ulcers Neurological: Alert and Oriented x 3, - - unable to ambulate unassisted Nutrition: Taking PO's Result Diagrams: 09/14/17 05:53 09/14/17 05:53 Diagnostic Imaging: Patient Name: MANINDER GIPSON Medical Record#: [id number] Ordering Physician: Power Whitlock MD Acct.#: [id number] : 1965 Age: 51 Sex: F Location: EMERGENCY DEPARTMENT Exam Date: 09/13/17 1521 ADM Status: REG ER Order Information: MRI LUMBAR SPINE W/O Accession Number: [id number] CPT: 75842 Indication: Chronic back pain. Sagittal T1, T2, STIR, axial T1 and T2-weighted images of the lumbar spine were obtained. The vertebral bodies appear normal in height. Normal bone marrow signal is noted. The S2 segment demonstrates some minimal bone marrow edema. This may be due to stress related change. At L5-S1 disc degeneration is noted. Spondylitic ridge is noted. No central or foraminal stenosis is noted. At L4-L5 degenerative disc disease is noted. Moderate facet hypertrophy is noted. No central or foraminal stenosis is noted. At L3-L4 no focal protrusion is identified. No central or foraminal stenosis is noted. At L1-L2 and L2-L3 no disc protrusion is noted. Minimal degenerative disc disease is noted. No evidence of spinal stenosis is noted. IMPRESSION: Degenerative disc disease at L4-L5 and L5-S1 with minimal spondylitic ridge. No definite spinal stenosis is noted. Bone marrow edema at S2 may be due to stress-related change or infiltrate degenerative disc disease. No evidence of compression of the cauda equina is noted. <Electronically signed by Angie Carranza MD in [place]> 09/13/17 1800 Dictated By: Angie Carranza MD Dictated Date/Time: 09/13/17 1800 Transcribed Date/Time: 09/13/17 3245 Copy to: Patient Name: MANINDER GIPSON Medical Record#: [id number] Ordering Physician: Maya Amado NP Acct.#: [id number] : 1965 Age: 51 Sex: F Location: [address] [place] [address] MEDICAL Exam Date: 09/15/17 1126 ADM Status: ADM IN Order Information: MRI THORACIC SPINE W/O Accession Number: [id number] CPT: 57828 HISTORY: numbness, pain COMPARISONS: None TECHNIQUE: The following sequences were obtained of the thoracic spine: Sagittal T1 and T2-weighted images, sagittal STIR images, coronal T2-weighted images, and axial T2-weighted images. . FINDINGS: Localization is based on counting from C2 SPINAL CORD, CONUS, AND CAUDA EQUINA: The visualized spinal cord, conus, and cauda equina are normal in caliber, position, and signal intensity. ALIGNMENT: The alignment is normal. VERTEBRAL BODIES: The bones are normal in signal intensity. The vertebral bodies are preserved in height. There is multilevel anterolateral marginal osteophyte formation. JOINTS: There is costovertebral osteoarthritis. MUSCULATURE: There is mild fatty infiltration. INTERVERTEBRAL DISCS: There is diffuse loss of intervertebral disc height and T2 signal throughout the spine. AXIAL IMAGES: There is no central canal stenosis or neuroforaminal narrowing. SOFT TISSUES: The visualized soft tissues of the chest and upper abdomen are unremarkable. OTHER: None. IMPRESSION: DEGENERATIVE DISC DISEASE AND OSTEOARTHRITIS. NO SIGNIFICANT NEURAL FORAMINAL NARROWING OR CENTRAL CANAL STENOSIS. <Electronically signed by Brenden Arenas MD in [place]> 09/15/17 1547 Dictated By: Brenden Arenas MD Dictated Date/Time: 09/15/171546 Transcribed Date/Time: 09/15/17 1541 Copy to: CC:Hawk Torrez MD; Maya Amado NP; Piero Mccrary MD; Joana Reyes MD Imaging - [facility] [address] [address] ph [phone]) ph [phone]) ph ([phone]) 1 of 2 Patient Name: MANINDER GIPSON Medical Record#: [id number] Ordering Physician: Maya Amado NP Acct.#: [id number] : 1965 Age: 51 Sex: F Location: [address] [place] [address] Exam Date: 09/15/17 1206 ADM Status: ADM IN Order Information: MRI CERVICAL SPINE WO Accession Number: [id number] CPT: 85349 HISTORY: numbness COMPARISONS: None TECHNIQUE: The following sequences were obtained of the cervical spine: Sagittal T1- and T2-weighted images, sagittal STIR images, axial T2 and gradient echo images. FINDINGS: BRAIN AND SPINAL CORD: The visualized spinal cord is normal in caliber, position , and signal intensity. The visualized portion of the brain is unremarkable. The cerebellar tonsils are normal in position. ALIGNMENT: There is straightening of the normal cervical lordosis. The alignment is otherwise normal. VERTEBRAL BODIES: There is multilevel anterolateral marginal osteophyte formation. JOINTS: There is diffuse uncovertebral and facet osteoarthritis. MUSCULATURE: There is moderate infiltration. INTERVERTEBRAL DISCS: There is diffuse loss of intervertebral disc height and T2 signal throughout the spine. AXIAL IMAGES: C2-C3: There is moderate right neuroforaminal narrowing secondary to uncovertebral and facet hypertrophy. There is no significant central canal stenosis. C3-C4: There is a broad-based disc osteophyte complex bilateral uncovertebral and facet hypertrophy. There is fusion across the facet joints. There is severe bilateral neuroforaminal narrowing. There is mild narrowing of the central canal. C4-C5: There is moderate bilateral neuroforaminal narrowing. There is no significant central canal stenosis. C5-C6: There is a broad-based disc osteophyte complex with bilateral uncovertebral and facet hypertrophy. There is severe right and moderate left neural foraminal narrowing. There is mild narrowing of the central canal. C6-C7: There is a broad-based disc osteophyte complex with bilateral uncovertebral and facet hypertrophy. There is moderate bilateral neuroforaminal narrowing. There is mild narrowing of the central canal. C7-T1: There is bilateral facet hypertrophy. There is moderate left and mild right neuroforaminal narrowing. There is no significant central canal stenosis. SOFT TISSUES: The visualized soft tissues of the neck are unremarkable. OTHER: None. IMPRESSION: 1. DEGENERATIVE DISC DISEASE AND OSTEOARTHRITIS. 2. THERE IS MILD NARROWING OF THE CENTRAL CANAL AT C3-C4, C5-C6, AND C6-C7. 3. THERE IS MULTILEVEL NEURAL FORAMINAL NARROWING DESCRIBED ABOVE. <Electronically signed by Brenden Arenas MD in [place]> 09/15/17 1535 Dictated By: Brenden Arenas MD Dictated Date/Time: 09/15/17 1535 Transcribed Date/Time: 09/15/17 1530 1 of 2 Assess/Plan/Problems-Billing Assessment: This is a 51 year old woman with history of chronic pain, hypertension and hyperglycemia and morbid obesity, admitted for inablility to ambulate 2/2 chronic pain. - Patient Problems (1) Chronic pain Code(s): G89.29 - OTHER CHRONIC PAIN SNOMED Code(s): 06978054 Comment: - On significant amount of narcotic analgesics, continues with increased pain with no clear etiology - Continue pain control, PT/OT, assistive devices as needed - MRIs as above - Consult from Dr. Pérez appreciated, no immediate surgical intervention warranted - Discussed with SW/CM, will be transferred to [facility] tomorrow when bed available (2) Hypertension Code(s): I10 - ESSENTIAL (PRIMARY) HYPERTENSION SNOMED Code(s): 01632259 Comment: - Continue home meds, stable (3) Morbid obesity Code(s): E66.01 - MORBID (SEVERE) OBESITY DUE TO EXCESS CALORIES SNOMED Code(s ): 577007570 Comment: - BMI 49.7 - Patient wants to seek bariatric surgery as an outpatient when pain issues are under control (4) Osteoporosis Code(s): M81.0 - AGE-RELATED OSTEOPOROSIS W/O CURRENT PATHOLOGICAL FRACTURE SNOMED Code(s): 37133008 Comment: - counseled on supportive care and lifestyle changes (5) Hyperglycemia Code(s): R73.9 - HYPERGLYCEMIA, UNSPECIFIED SNOMED Code(s): 70169372 Comment: - May be related to overmedicating with prednisone - Trending down on today's labs (6) Leukocytosis Code(s): D72.829 - ELEVATED WHITE BLOOD CELL COUNT, UNSPECIFIED SNOMED Code(s) : 360801720 Comment: - Likely r/t overmedication with prednisone, does not appear toxic, will monitor Status and Disposition: Dispo planning to [facility] when bed obtained.
--- NOTE | 2017-09-15 22:26 | PN ---
Progress Note - Progress Note Date of Service: 09/15/17 SOAP: Subjective: []Patient seen earlier. No events ON. Pain better controlled. Tolerates sitting position. Objective: [] VSS AAOx3 ALMAS, CN II-XII grossly intact Motor 4-5/5 all extremities Sensory grossly intact to light touch. Assessment: []51 yof intractable back pain, DDD L4-5, L5-S1 Plan: []MRI of C/T spine reveals DDD, No evidence of significant stenosis, cord compression or myelomalacia. Would recommend conservative treatment for now. Would recommend CT of LSpine/ sacrum to exclude stress fracture of S2. Please notify our service when CT is done. Discussed in extend with patient. Cherry Pérez MD
[2017-09-15] MEDS: Lidocaine Patch REMOVE* 1 NOTE MISC PATCH OFF SCH (22:43)
[2017-09-16] MEDS: HYDROmorphone INJ* 2 MG/ML CARPUJECT SYRINGE IV SLOW PU PRN ×3 (00:21→09:10)
[2017-09-16] MEDS: oxyCODONE TAB* 5 MG TAB PO PRN ×3 (00:21→12:10)
[2017-09-16] MEDS: Cyclobenzaprine TAB* 10 MG PO PRN ×2 (04:35→12:09)
[2017-09-16] MEDS: Heparin VIAL(*) 5000 UNITS/ML VIAL (FIVE THOUSAND) SUBCUT SCH ×2 (04:42→13:42)
[2017-09-16] MEDS: Ketorolac INJ* 30 MG/ML 1 ML VIAL IV PUSH PRN ×2 (05:36→13:41)
[2017-09-16] MEDS: oxyCODONE SR TAB(*) 10 MG TAB.SR PO PRN (07:26)
[2017-09-16] MEDS: tiZANidine TAB* 2 MG PO PRN ×2 (07:26→13:42)
[2017-09-16] MEDS: Docusate CAP* 100 MG PO SCH (07:26)
[2017-09-16 07:30] VITALS: BP 155/73
[2017-09-16] MEDS: Fluticasone NASAL SPRAY 50MCG* 16 gm SPRAY BTL BOTH NARES SCH (07:34)
[2017-09-16] MEDS: predniSONE TAB* 10 MG PO SCH (07:34)
[2017-09-16] MEDS: Mometasone/Formoter 200/5 MDI INH SCH (08:27)
--- NOTE | 2017-09-16 08:42 | ED ---
Bry Rahman Stephanie, scribed for Power Whitlock MD on 09/13/17 at 1530 . Lower Extremity - HPI Summary HPI Summary: The pt is a 51 y/o F presenting to the ED with c/o hip pain that began on . Symptoms include increased urinary frequency, urinary incontinence, bilateral LE and feet pain, bilateral tingling and numbness in LE and chronic LE edema. She denies dysuria. 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 The pt states she recently began sulfasalazine. The pt takes oxycoton 10 mg 3x per day and 2 5 mg tablets of oxycodone every 4 hrs. Her hip pain is rated as a 10 out of 10 in severity. - History of Current Complaint Chief Complaint: EDBackInjuryPain Stated Complaint: DIFF BREATHING Time Seen by Provider: 09/13/17 14:25 Hx Obtained From: Patient Onset of Pain: Days Onset/Duration: Still Present Severity Currently: Severe Pain Intensity: 10 Pain Scale Used: 0-10 Numeric Timing: Constant Location: Is Discrete @ - bilateral hips and LE Aggravating Factor(s): Movement Alleviating Factor(s): Nothing - Allergies/Home Medications Allergies/Adverse Reactions: Allergies Allergy/AdvReac Type Severity Reaction Status Date / Time aztreonam Allergy Shortness Verified 09/13/17 14:01 of Breath Carbapenems Allergy Rash Verified 09/13/17 14:01 Cephalosporins Allergy Rash Verified 09/13/17 14:01 Penicillins Allergy Shortness Verified 09/13/17 14:01 of Breath aminothiols Allergy Rash Uncoded 09/13/17 14:02 Home Medications: Home Medications Albuterol 2.5MG/3ML (0.083%)* [Ventolin 2.5 MG/3 ML NEB.ANNABELLE*] 2.5 mg INH Q4H PRN 09/13/17 [History Confirmed 09/13/17] Albuterol HFA INHALER* [Ventolin HFA Inhaler*] 2 puff INH Q4H PRN 09/13/17 [ History Confirmed 09/13/17] Fluticasone NASAL SPRAY 50MCG* [Flonase NASAL SPRAY 50MCG*] 1 spray BOTH NARES DAILY 09/13/17 [History Confirmed 09/13/17] Fluticasone-Salmeterol 250-50* [Advair Diskus 250-50*] 1 puff INH BID 09/13/17 [ History Confirmed 09/13/17] Lidocaine PATCH 5%* [Lidoderm 5% Patch*] 1 patch TRANSDERM DAILY 09/13/17 [ History Confirmed 09/13/17] LoraTADine TAB(NF) [Claritin 10 MG TAB(NF)] 10 mg PO DAILY PRN 09/13/17 [ History Confirmed 09/13/17] Oxycodone 100mg/5ml 0.25 ml SL .Q6-8H PRN 09/13/17 [History Confirmed 09/13/17] Thyroid,Pork [[place] Thyroid] 30 mg PO DAILY 09/13/17 [History Confirmed ] oxyCODONE SR TAB(*) [Oxycontin 10 mg (*)] 10 mg PO Q8HR PRN 09/13/17 [History Confirmed 09/13/17] oxyCODONE TAB* [Roxycodone TAB 5 mg*] 5 - 10 mg PO .Q4-6H PRN 09/13/17 [History Confirmed 09/13/17] predniSONE TAB* [Deltasone 10 MG TAB*] 30 mg PO DAILY 09/13/17 [History Confirmed 09/13/17] tiZANidine TAB* [Zanaflex TAB*] 2 - 4 mg PO TID PRN 09/13/17 [History Confirmed 09/13/17] PMH/Surg Hx/FS Hx/Imm Hx Endocrine/Hematology History: Reports: Hx Thyroid Disease, Hx Anemia - With Interferon Denies: Hx Anticoagulant Therapy, Hx Diabetes Cardiovascular History: Denies: Hx Hypertension, Hx Pacemaker/ICD Respiratory History: Denies: Hx Asthma, Hx Chronic Obstructive Pulmonary Disease (COPD) GI History: Reports: Hx Gall Bladder Disease, Hx Irritable Bowel, Hx Jaundice, Other GI Disorders - right side pain, hep c History: Denies: Hx Renal Disease Musculoskeletal History: Reports: Hx Arthritis, Hx Back Problems, Other Musculoskeletal History - chronic back pain,osteo arthritis Denies: Hx Rheumatoid Arthritis, Hx Osteoporosis Sensory History: Reports: Hx Contacts or Glasses Denies: Hx Hearing Aid Opthamlomology History: Reports: Hx Contacts or Glasses Neurological History: Denies: Hx Dementia, Hx Seizures, Other Neuro Impairments/Disorders Psychiatric History: Reports: Hx Anxiety Denies: Hx Panic Disorder, Hx Substance Abuse - Cancer History Hx Chemotherapy: No Hx Radiation Therapy: No - Surgical History Surgery Procedure, Year, and Place: WILDER 2004, [facility] [place]. CYST REMOVED FROM EYE done in office 2009 Hx Anesthesia Reactions: No Infectious Disease History: No Infectious Disease History: Reports: Hx Hepatitis - Hep c Denies: Hx Human Immunodeficiency Virus (HIV), Traveled Outside the [place] in Last 30 Days - Family History Known Family History: Positive: Other - rheumatoid arthritis, sjogren's disease - mother Negative: Renal Disease Family History: No family history of breast cancer. - Social History Occupation: Disabled Lives: With Family Alcohol Use: None Hx Substance Use: No Substance Use Type: Reports: None Hx Tobacco Use: No Smoking Status (MU): Former Smoker Have You Smoked in the Last Year: No Review of Systems Negative: Fever, Chills Negative: Erythema Negative: Sore Throat Negative: Chest Pain Negative: Shortness Of Breath, Cough Negative: Abdominal Pain, Vomiting, Nausea Positive: frequency - increased, incontinence - urinary. Negative: dysuria, hematuria Positive: Edema - chronic LE , Other - bilateral hip pain, L LE pain. Negative : Myalgia Negative: Rash Neurological: Negative - dizziness, Other - tingling in bilateral LE and feet. Positive: Numbness - LE and feet bilaterally All Other Systems Reviewed And Are Negative: Yes Physical Exam - Summary Physical Exam Summary: Constitutional: Well-developed, Well-nourished, Alert. (-) Distressed Skin: Warm, Dry HENT: Normocephalic; Atraumatic Eyes: Conjunctiva normal Neck: Musculoskeletal ROM normal neck. (-) JVD, (-) Stridor, (-) Tracheal deviation Cardio: Rhythm regular, rate normal, Heart sounds normal; Intact distal pulses; The pedal pulses are 2+ and symmetric. Radial pulses are 2+ and symmetric. (-) Murmur Pulmonary/Chest wall: Effort normal. (-) Respiratory distress, (-) Wheezes, (-) Rales Abd: Soft, (-) Tenderness, (-) Distension, (-) Guarding, (-) Rebound Musculoskeletal: Positive straight leg raise on the R side. Lower extremity strength intact. Lymph: (-) Cervical adenopathy Neuro: Alert, Oriented x3 Psych: Mood and affect Normal Rectal: sphincter tone is intact Triage Information Reviewed: Yes Vital Signs On Initial Exam: Initial Vitals Temp Pulse Resp BP Pulse Ox 99.1 F 110 22 173/93 95 09/13/17 13:37 09/13/17 13:37 09/13/17 13:37 09/13/17 13:37 09/13/17 13:37 Vital Signs Reviewed: Yes Diagnostics - Vital Signs Vital Signs Temp Pulse Resp BP Pulse Ox 09/13/17 13:37 99.1 F 110 22 173/93 95 - Laboratory Result Diagrams: 09/13/17 15:50 09/13/17 15:50 Lab Statement: Any lab studies that have been ordered have been reviewed, and results considered in the medical decision making process. - Radiology Lumbar Spine MRI Xray Interpretation: No Acute Changes Radiology Interpretation Completed By: Radiologist - No evidence of compression of the cauda equina is noted. ED physician has reviewed this report. Re-Evaluation - Re-Evaluation First Eval Re-Evaluation Time: 18:28 Change: Worse - The pt is refusing to walk. She is requesting a commode. She states she is unable to care for herself at home and is requesting admission into the hospital. Lower Extremity Course/Dx - Diagnoses Provider Diagnoses: Low back pain, Uncontrolled pain - Physician Notifications Discussed Care Of Patient With: Joana Reyes Time Discussed With Above Provider: 18:42 Instructed by Provider To: Admit As Inpatient Discharge - Sign-Out/Discharge Documenting (check all that apply): Discharge/Admit/Transfer - Admit - Discharge Plan Condition: Stable Disposition: ADMITTED TO [facility] Referrals: Piero Mccrary MD [Primary Care Provider] - The documentation as recorded by the Bry robertson Stephanie accurately reflects the service I personally performed and the decisions made by , Power Whitlock MD.
[2017-09-16] MEDS: Lidocaine PATCH 5%* 1 PATCH TRANSDERM SCH (09:42)
[2017-09-16] MEDS ORDERED: oxyCODONE SR TAB(*) 10 MG TAB.SR PO PRN (09:49)
[2017-09-16] MEDS ORDERED: predniSONE TAB* 10 MG PO SCH (09:50)
[2017-09-16] MEDS ORDERED: oxyCODONE TAB* 5 MG TAB PO PRN (12:49)
--- NOTE | 2017-09-16 12:54 | DCNOTE ---
Subjective Date of Service: 09/16/17 Interval History: Patient seen and examined. Per staff, patient upset that IV dilaudid has been discontinued. Extensive discussion with patient with staff present regarding POC for pain control and the need to come off IV pain meds. Agreed to adjust PO pain meds in anticipation of DC to [facility]. Denies SOB, no chest pain, no n/v. No further complaints. Objective Active Medications: Al Hydrox/Mg Hydrox/Simethicone (Maalox Plus*) 30 ml PO Q6H PRN PRN Reason: INDIGESTION Albuterol (Ventolin 2.5 Mg/3 Ml Neb.Anette*) 2.5 mg INH [id number] AWAKE PRN PRN Reason: sob/wheezing Albuterol (Ventolin Hfa Inhaler*) 2 puff INH Q4H PRN PRN Reason: SHORTNESS OF BREATH Cetirizine HCl (Zyrtec*) 10 mg PO DAILY PRN PRN Reason: Allergy Symptoms Cyclobenzaprine HCl (Flexeril Tab*) 10 mg PO TID PRN PRN Reason: SPASMS - NECK Last Admin: 09/16/17 12:09 Dose: 10 mg Docusate Sodium (Colace Cap*) 100 mg PO BID [facility] Last Admin: 09/16/17 07:26 Dose: 100 mg Fluticasone Propionate (Flonase Nasal [place] 50mcg*) 1 spray BOTH NARES DAILY [facility] Last Admin: 09/16/17 07:34 Dose: Not Given Heparin Sodium (Porcine) (Heparin Vial(*)) 5,000 units SUBCUT Q8HR [facility] Last Admin: 09/16/17 04:42 Dose: 5,000 units Ketorolac Tromethamine (Toradol Inj*) 30 mg IV PUSH Q6H PRN PRN Reason: PAIN Last Admin: 09/16/17 05:36 Dose: 30 mg Lidocaine (Lidoderm 5% Patch*) 1 patch TRANSDERM DAILY [facility] Last Admin: 09/16/17 09:42 Dose: 1 patch Magnesium Hydroxide (Milk Of Magnesia Liq*) 30 ml PO Q4H PRN PRN Reason: CONSTIPATION Mometasone Furoate/Formoterol Fumar (Dulera 200/5 Mdi*) 2 puff INH BID [facility] Last Admin: 09/16/17 08:27 Dose: 2 puff Ondansetron HCl (Zofran 40 Mg Vial*) 4 mg IV Q4H PRN PRN Reason: NAUSEA/VOMITING Oxycodone HCl (Oxycontin(*)) 15 mg PO Q8HR PRN PRN Reason: PAIN - UNRELIEVED Oxycodone HCl (Roxycodone Tab*) 10 mg PO Q4H PRN PRN Reason: PAIN - UNRELIEVED Pharmacy Profile Note (Lidocaine Patch Remove*) 1 note PATCH OFF 2100 [facility] Last Admin: 09/15/17 22:43 Dose: 1 note Prednisone (Deltasone Tab*) 40 mg PO DAILY [facility] Last Admin: 09/16/17 12:16 Dose: 40 mg Tizanidine HCl (Zanaflex Tab*) 2 mg PO TID PRN PRN Reason: PAIN - UNRELIEVED Last Admin: 09/16/17 07:26 Dose: 2 mg Vital Signs - 8 hr 09/16/17 09/16/17 09/16/17 06:12 07:25 07:26 Temperature 98.2 F Pulse Rate 111 Respiratory 18 16 20 Rate Blood Pressure 155/73 (mmHg) O2 Sat by Pulse 97 Oximetry 09/16/17 09/16/17 09/16/17 07:35 08:00 09:10 Temperature Pulse Rate Respiratory 20 20 20 Rate Blood Pressure (mmHg) O2 Sat by Pulse Oximetry 09/16/17 09/16/17 09/16/17 10:09 10:10 11:59 Temperature Pulse Rate Respiratory 18 18 18 Rate Blood Pressure (mmHg) O2 Sat by Pulse Oximetry 09/16/17 09/16/17 12:09 12:10 Temperature Pulse Rate Respiratory 18 18 Rate Blood Pressure (mmHg) O2 Sat by Pulse Oximetry Oxygen Devices in Use Now: Nasal Cannula Appearance: Alert, mild distress Ears/Nose/Mouth/Throat: NL Teeth, Lips, Gums, Mucous Membranes Moist Neck: NL Appearance and Movements; NL JVP, Trachea Midline Respiratory: Symmetrical Chest Expansion and Respiratory Effort, Clear to Auscultation Cardiovascular: NL Sounds; No Murmurs; No JVD, RRR Abdominal: NL Sounds; No Tenderness; No Distention Extremities: No Edema Skin: No Rash or Ulcers Neurological: Alert and Oriented x 3, NL Sensation Nutrition: Taking PO's Result Diagrams: 09/14/17 05:53 09/14/17 05:53 Diagnostic Imaging: Patient Name: MANINDER GIPSON Medical Record#: [id number] Ordering Physician: Power Whitlock MD Acct.#: [id number] : 1965 Age: 51 Sex: F Location: EMERGENCY DEPARTMENT Exam Date: 09/13/17 1521 ADM Status: REG ER Order Information: MRI LUMBAR SPINE W/O Accession Number: [id number] CPT: 50952 Indication: Chronic back pain. Sagittal T1, T2, STIR, axial T1 and T2-weighted images of the lumbar spine were obtained. The vertebral bodies appear normal in height. Normal bone marrow signal is noted. The S2 segment demonstrates some minimal bone marrow edema. This may be due to stress related change. At L5-S1 disc degeneration is noted. Spondylitic ridge is noted. No central or foraminal stenosis is noted. At L4-L5 degenerative disc disease is noted. Moderate facet hypertrophy is noted. No central or foraminal stenosis is noted. At L3-L4 no focal protrusion is identified. No central or foraminal stenosis is noted. At L1-L2 and L2-L3 no disc protrusion is noted. Minimal degenerative disc disease is noted. No evidence of spinal stenosis is noted. IMPRESSION: Degenerative disc disease at L4-L5 and L5-S1 with minimal spondylitic ridge. No definite spinal stenosis is noted. Bone marrow edema at S2 may be due to stress-related change or infiltrate degenerative disc disease. No evidence of compression of the cauda equina is noted. <Electronically signed by Angie Carranza MD in [place]> 09/13/17 1800 Dictated By: Angie Carranza MD Dictated Date/Time: 09/13/17 1800 Transcribed Date/Time: 09/13/17 1756 Copy to: Patient Name: MANINDER GIPSON Medical Record#: [id number] Ordering Physician: Maya Amado NP Acct.#: [id number] : 1965 Age: 51 Sex: F Location: [address] [place] [address] Exam Date: 09/15/17 1126 ADM Status: ADM IN Order Information: MRI THORACIC SPINE W/O Accession Number: [id number] CPT: 53902 HISTORY: numbness, pain COMPARISONS: None TECHNIQUE: The following sequences were obtained of the thoracic spine: Sagittal T1 and T2-weighted images, sagittal STIR images, coronal T2-weighted images, and axial T2-weighted images. . FINDINGS: Localization is based on counting from C2 SPINAL CORD, CONUS, AND CAUDA EQUINA: The visualized spinal cord, conus, and cauda equina are normal in caliber, position, and signal intensity. ALIGNMENT: The alignment is normal. VERTEBRAL BODIES: The bones are normal in signal intensity. The vertebral bodies are preserved in height. There is multilevel anterolateral marginal osteophyte formation. JOINTS: There is costovertebral osteoarthritis. MUSCULATURE: There is mild fatty infiltration. INTERVERTEBRAL DISCS: There is diffuse loss of intervertebral disc height and T2 signal throughout the spine. AXIAL IMAGES: There is no central canal stenosis or neuroforaminal narrowing. SOFT TISSUES: The visualized soft tissues of the chest and upper abdomen are unremarkable. OTHER: None. IMPRESSION: DEGENERATIVE DISC DISEASE AND OSTEOARTHRITIS. NO SIGNIFICANT NEURAL FORAMINAL NARROWING OR CENTRAL CANAL STENOSIS. <Electronically signed by Brenden Arenas MD in [place]> 09/15/17 1547 Dictated By: Brenden Arenas MD Dictated Date/Time: 09/15/17 154 Transcribed Date/Time: 09/15/17 1541 Copy to: CC:Hawk Torrez MD; Maya Amado NP; Piero Mccrary MD; Joana Reyes MD Imaging - [facility] Imaging - [facility] Imaging - [facility] [address] [address] ph [phone]) ph ([phone]) ph ([phone]) 1 of 2 Patient Name: MANINDER GIPSON Medical Record#: [id number] Ordering Physician: Maya Amado NP Acct.#: [id number] : 1965 Age: 51 Sex: F Location: [address] [place] [address] MEDICAL Exam Date: 09/15/17 1206 ADM Status: ADM IN Order Information: MRI CERVICAL SPINE WO Accession Number: [id number] CPT: 65205 HISTORY: numbness COMPARISONS: None TECHNIQUE: The following sequences were obtained of the cervical spine: Sagittal T1- and T2-weighted images, sagittal STIR images, axial T2 and gradient echo images. FINDINGS: BRAIN AND SPINAL CORD: The visualized spinal cord is normal in caliber, position , and signal intensity. The visualized portion of the brain is unremarkable. The cerebellar tonsils are normal in position. ALIGNMENT: There is straightening of the normal cervical lordosis. The alignment is otherwise normal. VERTEBRAL BODIES: There is multilevel anterolateral marginal osteophyte formation. JOINTS: There is diffuse uncovertebral and facet osteoarthritis. MUSCULATURE: There is moderate infiltration. INTERVERTEBRAL DISCS: There is diffuse loss of intervertebral disc height and T2 signal throughout the spine. AXIAL IMAGES: C2-C3: There is moderate right neuroforaminal narrowing secondary to uncovertebral and facet hypertrophy. There is no significant central canal stenosis. C3-C4: There is a broad-based disc osteophyte complex bilateral uncovertebral and facet hypertrophy. There is fusion across the facet joints. There is severe bilateral neuroforaminal narrowing. There is mild narrowing of the central canal. C4-C5: There is moderate bilateral neuroforaminal narrowing. There is no significant central canal stenosis. C5-C6: There is a broad-based disc osteophyte complex with bilateral uncovertebral and facet hypertrophy. There is severe right and moderate left neural foraminal narrowing. There is mild narrowing of the central canal. C6-C7: There is a broad-based disc osteophyte complex with bilateral uncovertebral and facet hypertrophy. There is moderate bilateral neuroforaminal narrowing. There is mild narrowing of the central canal. C7-T1: There is bilateral facet hypertrophy. There is moderate left and mild right neuroforaminal narrowing. There is no significant central canal stenosis. SOFT TISSUES: The visualized soft tissues of the neck are unremarkable. OTHER: None. IMPRESSION: 1. DEGENERATIVE DISC DISEASE AND OSTEOARTHRITIS. 2. THERE IS MILD NARROWING OF THE CENTRAL CANAL AT C3-C4, C5-C6, AND C6-C7. 3. THERE IS MULTILEVEL NEURAL FORAMINAL NARROWING DESCRIBED ABOVE. <Electronically signed by Bernden Arenas MD in [place]> 09/15/17 153 Dictated By: Brenden Arenas MD Dictated Date/Time: 09/15/17 153 Transcribed Date/Time: 09/15/17 153 1 of 2 Assess/Plan/Problems-Billing Assessment: This is a 51 year old woman with history of chronic pain, hypertension and hyperglycemia and morbid obesity, admitted for inablility to ambulate 2/2 chronic pain. - Patient Problems (1) Chronic pain Code(s): G89.29 - OTHER CHRONIC PAIN SNOMED Code(s): 95497024 Comment: - On significant amount of narcotic analgesics, continues with increased pain with no clear etiology - Continue pain control, PT/OT, assistive devices as needed - MRIs as above - Consult from Dr. Pérez appreciated, no immediate surgical intervention warranted - Discussed with SW/CM, will be transferred to [facility] tomorrow when bed available - Continue to titrate pain meds to effect - Evaluate CT per NS recommendation when reading is available. (2) Hypertension Code(s): I10 - ESSENTIAL (PRIMARY) HYPERTENSION SNOMED Code(s): 35779900 Comment: - Continue home meds, stable (3) Morbid obesity Code(s): E66.01 - MORBID (SEVERE) OBESITY DUE TO EXCESS CALORIES SNOMED Code(s ): 996528070 Comment: - BMI 49.7 - Patient wants to seek bariatric surgery as an outpatient when pain issues are under control (4) Osteoporosis Code(s): M81.0 - AGE-RELATED OSTEOPOROSIS W/O CURRENT PATHOLOGICAL FRACTURE SNOMED Code(s): 23446123 Comment: - counseled on supportive care and lifestyle changes (5) Hyperglycemia Code(s): R73.9 - HYPERGLYCEMIA, UNSPECIFIED SNOMED Code(s): 92698321 Comment: - May be related to overmedicating with prednisone - Trending down - Decrease prednisone to 40mg daily today and continue to taper slowly (6) Leukocytosis Code(s): D72.829 - ELEVATED WHITE BLOOD CELL COUNT, UNSPECIFIED SNOMED Code(s) : 338204257 Comment: - Likely r/t overmedication with prednisone, does not appear toxic, no fever (7) Hypothyroid Status: Acute Code(s): E03.9 - HYPOTHYROIDISM, UNSPECIFIED SNOMED Code(s): 64372718 Comment: - Restart [place] thyroid at DC Status and Disposition: Dispo planning to [facility] when bed obtained, likely later today
--- NOTE | 2017-09-16 13:03 | RAD ---
HISTORY: r/o stress fx S2, back pain COMPARISONS: MRI dated September 13, 2017 TECHNIQUE: Multiple contiguous axial CT scans were obtained of the lumbar spine without intravenous contrast, with coronal and sagittal multiplanar reformations. FINDINGS: The study is limited by patient body habitus. SPINAL CANAL: Evaluation of the central canal is limited on CT technique; however, there is no obvious canalicular mass or epidural hemorrhage. ALIGNMENT: The alignment is normal. VERTEBRAL BODIES: There is diffuse osteopenia. The vertebral bodies are preserved in height. JOINTS: There is facet osteoarthritis along the lower lumbar spine. MUSCULATURE: Unremarkable INTERVERTEBRAL DISCS: There is diffuse loss of intervertebral disc height throughout the spine. AXIAL IMAGES: T12-L1: There is no osseous neural foraminal narrowing or central canal stenosis. L1-L2: There is no osseous neural foraminal narrowing or central canal stenosis. L2-L3: There is no osseous neural foraminal narrowing or central canal stenosis. L3-L4: There is mild disc bulge. There is mild bilateral neuroforaminal narrowing. There is no osseous central canal stenosis. L4-L5: There is broad-based disc bulge. There is bilateral facet hypertrophy. There is moderate bilateral neuroforaminal narrowing. There is mild narrowing of the central canal. L5-S1: There is bilateral facet hypertrophy. There is marginal osteophyte formation at the neural foramina bilaterally. There is severe left and moderate to severe right neural foraminal area. There is no osseous central canal stenosis. SOFT TISSUES: The bladder is collapsed around a Begum catheter. OTHER: There are linear lucencies seen through the sequela bilaterally consistent with nondisplaced sacral insufficiency fractures. IMPRESSION: 1. OSTEOPENIA. 2. DEGENERATIVE DISC DISEASE AND OSTEOARTHRITIS. 3. BILATERAL NONDISPLACED SACRAL INSUFFICIENCY FRACTURES.
[2017-09-16] MEDS ORDERED: oxyCODONE SR TAB(*) 20 MG TAB.SR PO ONE (14:23)
--- NOTE | 2017-09-17 11:19 | DS ---
CC: Dr. Mccrary; Dr. Tinajero * DISCHARGE SUMMARY: DATE OF ADMISSION: 09/13/17 DATE OF DISCHARGE: 09/16/17 PRIMARY CARE PROVIDER: Piero Mccrary MD. ATTENDING FOR THIS ADMISSION AND TODAY: Dr. Reyes * (DICTATED BY HIPOLITO HARDWICK NP) HOSPITAL COURSE: This is a 51-year-old female patient with a history of chronic pain, hypertension, hypothyroidism, osteoporosis, and obesity hypoventilation syndrome. The patient came to the emergency department reporting a several-day history of inability to ambulate. She sees Dr. Tinajero who is her pain management doctor. At one point, she was put on prednisone and the patient took more prednisone than was prescribed to her. She was taking 100 mg a day stating that her pain was increasing and nothing was working. She came to the emergency department for evaluation. She was found to have leukocytosis and hyperglycemia likely secondary to her taking too much prednisone. She was also having very severe back pain and spasms. The patient had MRI of the lumbar spine, thoracic, and cervical, which showed degenerative changes, but no acute cord compression or acute surgical fractures or any kind of findings that would require immediate intervention. We did have neurosurgery see the patient, Dr. Pérez because her breakthrough pain was so bad as reported by the client that she stated she required a Begum catheter because she could not stand up to ambulate and go to the bathroom. The patient also stated she has some numbness running down her leg when she was sat up in a chair. Dr. Pérez saw the patient, concurred that the patient did not have any acute surgical needs; however, he did order an additional lumbar CT of the spine to rule out stress fracture and her CT scan does show a stress fracture in the sacrum, but again it is bilateral, nondisplaced, sacral insufficiency fractures; however, no acute surgical intervention again is required. These are all chronic conditions that must be addressed as an outpatient. The patient still was having difficulty ambulating. She has agreed to go to short- term rehab to get her strength back, get her pain under control and then will seek outpatient followup with neurosurgery and possibly bariatric surgery as her weight is likely contributing to a lot of her chronic pain. DISCHARGE DIAGNOSES: 1. Intractable back pain with sacral stress fractures. 2. History of hypertension. 3. Overuse of prednisone. 4. Hypothyroidism. 5. Hypertension. 6. History of chronic opioid use. MEDICATIONS AT THE TIME OF DISCHARGE: Include: 1. Prednisone now 30 mg daily, slow taper. 2. Albuterol 2 puffs q. 4 hours as needed. 3. Tizanidine 2 mg 3 times a day as needed. 4. OxyContin 20 mg b.i.d. 5. Lidocaine patch, 1 patch daily. 6. Advair 1 puff 2 times a day. 7. Fluticasone nasal spray 50 mcg daily. 8. Loratadine 10 mg daily. 9. [place] Thyroid 30 mg daily. 10. Oxycodone 10 mg q. 4 hours as needed. 11. Cyclobenzaprine 10 mg 3 times a day as needed. 12. Maalox 30 mL q. 6 hours as needed. The patient was discharged in stable condition to [facility] [place] where she was accepted for short-term rehab. The patient states her understanding of her discharge instructions and her rehab plan. The patient was instructed to follow up with Dr. Tinajero, her pain management doctor after discharge, also Dr. Piero Mccrary, her primary care provider and also Dr. Pérez from Neurosurgery, also as an outpatient. HIPOLITO HARDWICK, ERNIE [id number]/[facility] #: [id number] ARTEM[place]
== END 2017-09-16 16:30 | DRG 543 ==
LOC: ED 13:29 → MED 19:27 → OBSVTOIN 09-15 14:08
PROVIDERS: ADMIT Student in an Organized Health Care Education/Training Program; ATTEND Internal Medicine
PROC: 0T9B70Z Drainage of Bladder with Drainage Device, Via Natural or Artificial Opening (ICD-10-PCS; principal; 2017-09-13)
DX: M48.48XA Fatigue fracture of vertebra, sacral and sacrococcygeal region, initial encounter for fracture (principal); E66.2 Morbid (severe) obesity with alveolar hypoventilation; Z68.42 Body mass index [BMI] 45.0-49.9, adult; G89.29 Other chronic pain; I10 Essential (primary) hypertension; E03.9 Hypothyroidism, unspecified; M81.0 Age-related osteoporosis without current pathological fracture; F41.9 Anxiety disorder, unspecified; M15.9 Polyosteoarthritis, unspecified; M35.3 Polymyalgia rheumatica; J44.9 Chronic obstructive pulmonary disease, unspecified; R73.9 Hyperglycemia, unspecified; D72.829 Elevated white blood cell count, unspecified; K58.9 Irritable bowel syndrome, unspecified; M51.36 Other intervertebral disc degeneration, lumbar region; M51.37 Other intervertebral disc degeneration, lumbosacral region; M48.07 Spinal stenosis, lumbosacral region; M48.061 Spinal stenosis, lumbar region without neurogenic claudication; M85.88 Other specified disorders of bone density and structure, other site; R20.0 Anesthesia of skin; M51.34 Other intervertebral disc degeneration, thoracic region; M50.30 Other cervical disc degeneration, unspecified cervical region; M47.9 Spondylosis, unspecified; T38.0X5A Adverse effect of glucocorticoids and synthetic analogues, initial encounter; Y92.9 Unspecified place or not applicable; Z90.49 Acquired absence of other specified parts of digestive tract; Z88.1 Allergy status to other antibiotic agents; Z88.0 Allergy status to penicillin; Z86.19 Personal history of other infectious and parasitic diseases; Z87.891 Personal history of nicotine dependence; Z82.61 Family history of arthritis; Z83.2 Family history of diseases of the blood and blood-forming organs and certain disorders involving the immune mechanism
CPT/HCPCS: 36415; 72131; 72141; 72146; 72148; 80048; 80053; 85025; 85027; 85652; 86140; 94640; 99284; A9270-GY; G0378; G8978-GP-CM; G8979-GP-CI; G8987-GO-CM; G8988-GO-CJ; J1170; J1644; J1885; J7512

== ENCOUNTER 2017-09-18 15:09 | Emergency (ER) | payer MEDICARE ==
[2017-09-18] MEDS ORDERED: Morphine VIAL* 10 MG/ML 1 ML VIAL IM ONE (16:15)
[2017-09-18] MEDS ORDERED: HYDROmorphone INJ* 2 MG/ML CARPUJECT SYRINGE IV SLOW PU ONE (16:22)
[2017-09-18 16:36] LABS: Hematocrit 43 % (35-47); Hemoglobin 14.6 g/dl (12.0-16.0); Mean Corpuscular HGB Conc 34 g/dl (31-36); Mean Corpuscular Hemoglobin 31 pg (27-31); Mean Corpuscular Volume 90 fL (80-97); Mean Platelet Volume 7.6 um3 (7.4-10.4); Platelet Count 184 10^3/ul (150-450); Red Blood Count 4.75 10^6/ul (4.0-5.4); Red Cell Distribution Width 14 % (10.5-15); White Blood Count 10.2 10^3/ul (3.5-10.8)
--- NOTE | 2017-09-18 16:40 | ED ---
Back Pain - HPI Summary HPI Summary: Patient is a 51-year-old female who presents to emergency department for intractable low back pain. Patient was admitted to the hospital 09/13/17-09/16/17 for intractable low back pain. She had MRIs of her entire spine less than one week ago which showed degenerative changes. She was seen by neuro surgeon well inpatient and no surgical intervention was recommended. Patient was discharged to [facility] [place] for inpt. rehab. Pt. states when she was discharged from the hospital they decreased her pain medication and that [facility] [place] addionally cut her pain meds. Pt. states she is unable to walk or perform ADL secondary to pain. She was found to have nondisplaced sacral stress fractures on CT. Pt. was discharged on prednisone, oxycodone, flereril, oxycotin, and lidocaine patch. Pt. denies recent injury or sickness. Symptoms are mild in severity. Movement makes symptoms worse. Nothing makes symptoms better. - History of Current Complaint Chief Complaint: EDBackInjuryPain Stated Complaint: BACK PAIN Time Seen by Provider: 09/18/17 15:18 Hx Obtained From: Patient Pain Intensity: 10 - Allergies/Home Medications Allergies/Adverse Reactions: Allergies Allergy/AdvReac Type Severity Reaction Status Date / Time aztreonam Allergy Shortness Verified 09/18/17 16:59 of Breath Carbapenems Allergy Rash Verified 09/18/17 16:59 Cephalosporins Allergy Rash Verified 09/18/17 16:59 Penicillins Allergy Shortness Verified 09/18/17 16:59 of Breath sulfasalazine Allergy Rash Verified 09/18/17 17:01 aminothiols Allergy Rash Uncoded 09/18/17 16:59 Home Medications: Home Medications Albuterol 2.5MG/3ML (0.083%)* [Ventolin 2.5 MG/3 ML NEB.ANNABELLE*] 2.5 mg INH Q4H PRN 09/18/17 [History Confirmed 09/18/17] Albuterol HFA INHALER* [Ventolin HFA Inhaler*] 2 puff INH Q4H PRN 09/18/17 [ History Confirmed 09/18/17] Cyclobenzaprine TAB* [Flexeril 10 MG TAB*] 10 mg PO TID PRN 09/18/17 [History Confirmed 09/18/17] Docusate CAP* [Colace Cap*] 100 mg PO BID 09/18/17 [History Confirmed 09/18/17] Fluticasone NASAL SPRAY 50MCG* [Flonase NASAL SPRAY 50MCG*] 1 spray BOTH NARES DAILY 09/18/17 [History Confirmed 09/18/17] Fluticasone-Salmeterol 250-50* [Advair Diskus 250-50*] 1 puff INH BID 09/18/17 [ History Confirmed 09/18/17] Lidocaine PATCH 5%* [Lidoderm 5% Patch*] 1 patch TRANSDERM DAILY 09/18/17 [ History Confirmed 09/18/17] LoraTADine TAB(NF) [Claritin 10 MG TAB(NF)] 10 mg PO DAILY PRN 09/18/17 [ History Confirmed 09/18/17] Mag Hydrox/Aluminum Hyd/Simeth [Aluminum/Magnesium/Simeth] 30 ml PO Q6H PRN 01/26 [History Confirmed 09/18/17] Magnesium Hydroxide LIQ* [Milk of Magnesia LIQ*] 30 ml PO Q4H PRN 09/18/17 [ History Confirmed 09/18/17] Thyroid,Pork [[place] Thyroid] 30 mg PO QAM 09/18/17 [History Confirmed 09/18/17] oxyCODONE SR TAB(*) [Oxycontin 20 mg (*)] 20 mg PO BID 09/18/17 [History Confirmed 09/18/17] oxyCODONE TAB* [Roxycodone TAB 5 mg*] 5 mg PO Q4H PRN 09/18/17 [History Confirmed 09/18/17] predniSONE TAB* [Deltasone 20 MG TAB*] 30 mg PO DAILY 09/18/17 [History Confirmed 09/18/17] tiZANidine TAB* [Zanaflex TAB*] 2 mg PO TID PRN 09/18/17 [History Confirmed 01/26] PMH/Surg Hx/FS Hx/Imm Hx Previously Healthy: No Endocrine/Hematology History: Reports: Hx Thyroid Disease, Hx Anemia - With Interferon Denies: Hx Anticoagulant Therapy, Hx Diabetes Cardiovascular History: Denies: Hx Hypertension, Hx Pacemaker/ICD Respiratory History: Denies: Hx Asthma, Hx Chronic Obstructive Pulmonary Disease (COPD) GI History: Reports: Hx Gall Bladder Disease, Hx Irritable Bowel, Hx Jaundice, Other GI Disorders - right side pain, hep c History: Denies: Hx Renal Disease Musculoskeletal History: Reports: Hx Arthritis, Hx Back Problems, Other Musculoskeletal History - chronic back pain,osteo arthritis Denies: Hx Rheumatoid Arthritis, Hx Osteoporosis Sensory History: Reports: Hx Contacts or Glasses Denies: Hx Hearing Aid Opthamlomology History: Reports: Hx Contacts or Glasses Neurological History: Denies: Hx Dementia, Hx Seizures, Other Neuro Impairments/Disorders Psychiatric History: Reports: Hx Anxiety Denies: Hx Panic Disorder, Hx Substance Abuse - Cancer History Hx Chemotherapy: No Hx Radiation Therapy: No - Surgical History Surgery Procedure, Year, and Place: [place] 2004, [facility] [place]ST REMOVED FROM EYE done in office 2009 Hx Anesthesia Reactions: No Infectious Disease History: No Infectious Disease History: Reports: Hx Hepatitis - Hep c Denies: Hx Human Immunodeficiency Virus (HIV), Traveled Outside the [place] in Last 30 Days - Family History Known Family History: Positive: Other - rheumatoid arthritis, sjogren's disease - mother Negative: Renal Disease Family History: No family history of breast cancer. - Social History Occupation: Unemployed [facility]: [facility] Alcohol Use: None Hx Substance Use: No Substance Use Type: Reports: None Hx Tobacco Use: No Smoking Status (MU): Former Smoker Have You Smoked in the Last Year: No Review of Systems Constitutional: Negative Eyes: Negative ENT: Negative Cardiovascular: Negative Respiratory: Negative Gastrointestinal: Negative Genitourinary: Negative - hernandez cath in place Positive: Other - Low back pain Negative: Weakness, Paresthesia, Numbness All Other Systems Reviewed And Are Negative: Yes Physical Exam Triage Information Reviewed: Yes Vital Signs On Initial Exam: Initial Vitals Temp Pulse Resp BP Pulse Ox 98.2 F 120 16 161/95 95 09/18/17 15:10 09/18/17 15:10 09/18/17 15:10 09/18/17 15:10 09/18/17 15:10 Vital Signs Reviewed: Yes Appearance: Positive: Well-Appearing, Obese - Patient lying in bed in no acute distress. Morbidly obese. Wearing O2 nasal cannula Skin: Positive: Warm, Dry Head/Face: Positive: Normal Head/Face Inspection Eyes: Positive: Normal Neck: Positive: Supple Musculoskeletal: Positive: Other - 5 out of 5 strength in bilateral lower extremities. No calf swelling or pain. No erythema or wounds lower extremities. Neurological: Positive: Normal, CN Intact II-III Psychiatric: Positive: Affect/Mood Appropriate Diagnostics - Vital Signs Vital Signs Temp Pulse Resp BP Pulse Ox 09/18/17 15:10 98.2 F 120 16 161/95 95 - Laboratory Result Diagrams: 09/18/17 16:29 09/18/17 16:29 Lab Statement: Any lab studies that have been ordered have been reviewed, and results considered in the medical decision making process. Back Pain Course/Dx - Course Course Of Treatment: Patient presenting to the ER for evaluation of intractable low back pain. There were no new injuries. She is afebrile with stable vital signs. She had MRIs of her entire spine just last week which are nonsurgical. Patient was evaluated by neurosurgery last week as well. She was given a dose of IV pain medication, basic labs were drawn. Attempted to ambulate patient and she was able to walk several steps and started complaining of excruciating low back pain. She states that her pain medication was decreased at [facility] and she does not want to return as her pain is not being controlled. Patient would ultimately like to go home states she is unable to take care of herself. I spoke with social work her who did not have any further recommendations at this time. I spoke with hospitalist, Dr. Levy, declined admission stating there is nothing else they can offer her inpatient. Charge nurse spoke with patient as well. And is willing to try returning to senior living with her medication can be changed back to what it was at discharge. group home was called and apparently nurse practitioner decreased oxycodone 10 mg every 4 to 5mg every 4. I called and spoke with patient's nurse and recommended we reinstate oxycodone 10 mg every 4 hours as prescribed at discharge. Will discharge patient back to [facility]. - Diagnoses Differential Diagnosis/HQI/PQRI: Positive: Herniated Disc, Strain, Sprain Provider Diagnoses: Intractable back pain Discharge - Sign-Out/Discharge Documenting (check all that apply): Discharge/Admit/Transfer - Discharge Plan Condition: Good Disposition: HOME Patient Education Materials: Chronic Back Pain (ED) Referrals: Piero Mccrary MD [Primary Care Provider] - As Soon As Possible Additional Instructions: Recommend reinstating the following discharge medication: Oxycodone 10 Q4 as needed for pain To continue all other medications as directed Return to ER if symptoms change or worsen - Billing Disposition and Condition Condition: GOOD Disposition: Home
[2017-09-18 16:51] LABS: EGFR Non-African American 97.1 (>60)
[2017-09-18 17:25] LABS: ABS Basophils 0.1 10^3/ul (0-0.2); ABS Eosinophils 0 10^3/ul (0-0.6); ABS Lymphocytes 1.1 10^3/ul (1.0-4.8); ABS Monocytes 0.6 10^3/ul (0-0.8); ABS Neutrophils 8.4 10^3/ul (1.5-7.7); ABS Nucleated RBC 0 10^3/ul; Eosinophil % 0 % (0-6); Lymphocyte % 10.6 % (25-47); Nucleated Red Blood Cells % 0.1
[2017-09-18 19:52] VITALS: BP 155/90
== END 2017-09-18 20:22 | disposition home or self-care (01) ==
LOC: ED 15:09
DX: M54.5 Low back pain (principal); Z87.891 Personal history of nicotine dependence
CPT/HCPCS: 36415; 80053; 85025; 85060; 96372; 96374; 99284; J1170; J2270